=== PATIENT | male | born 1955 | race African-American/Black ===

== ENCOUNTER 2024-01-06 12:36 | Emergency (ER) | payer MEDICARE, OTHER, SELFPAY ==
--- NOTE | 2024-01-06 12:44 | ED_ITS ---
HPI - Eye Problem General Chief complaint: Eye Problems Stated complaint: eye pain and redness, high blood pressure Time Seen by Provider: 01/06/24 13:00 Source: patient, RN notes reviewed and old records reviewed Mode of arrival: ambulatory History of Present Illness ED Provider: Mahsa Zavala PA-C HPI Narrative: 68-year-old male with a past medical history of HTN, noncompliant on medication x months due to insurance issues, DVT/PE on Coumadin (INR 1.4 yesterday s/p missing a few doses of his medication) presenting to the ED complaining of left eye irritation, redness, and blurry vision since waking this morning. States was rubbing eye last night, felt like he had something in it. Denies headache at present, nausea/vomiting, chest pain, shortness of breath, weakness. Patient states he believes redness is from his blood pressure. Reports chronic ?implanted contacts. MD chief complaint: eye pain, eye redness and vision change Related Data Previous Rx's ?Medication ?Instructions ?Recorded amlodipine 5 mg tablet (Norvasc) 5 mg PO DAILY #30 tabs 01/06/24 erythromycin 5 mg/gram (0.5 %) eye 1 appl ophthalmic (eye) QID 7 days 01/06/24 ointment #3.5 grams Allergies Allergy/AdvReac Type Severity Reaction Status Date / Time No Known Allergies Allergy Verified 01/06/24 12:50 Review of Systems Review of Systems: Constitutional: No Fever, No Chills, No Fatigue, No Malaise ENT/Mouth: No Ear Pain, No Nasal Congestion, No sore throat, No Rhinorrhea, No Swallowing Difficulty Eyes: + Eye Pain, No Swelling, + Redness, + Foreign Body sensation, No Discharge, + Vision Changes Cardiovascular: No Chest Pain, No SOB, No Palpitations Respiratory: No Cough, No Sputum, No Dyspnea Gastrointestinal: No Nausea, No Vomiting, No Diarrhea, No Constipation, No Abdominal pain Musculoskeletal: No joint pain, No Myalgias, No Joint Swelling Skin: No Skin Lesions, No rash Neuro: No Weakness, No Numbness, No Paresthesias, No Loss of Consciousness, No Dizziness, No Headache Yes all other systems are reviewed and are negative Constitutional: Constitutional: Reports as per HPI Eyes: Eyes: Reports photophobia PMFSH Past Medical History Attestation statement: The following information was validated with the patient. Source: old records reviewed Social History Social History Advance Directives: No Physical Exam Vital Signs: Vital Signs: Last Vital Signs Temp 97.4 F 01/06/24 12:45 Pulse 57 01/06/24 14:19 Resp 18 01/06/24 12:45 BP 181/94 H 01/06/24 14:19 Pulse Ox 97 01/06/24 14:19 O2 Del Method Room Air 01/06/24 14:19 BMI result Body Mass Index 24.4 Const: General: cooperative, healthy appearing and no acute distress Orientation/consciousness: patient oriented x3 Limitations: no limitations HEENT: Head: Yes normal to inspection and Yes atraumatic Ears: hearing grossly normal bilaterally General nose exam: Normal external nose present Face and sinus: Yes normal facial exam Eyes: Other: +mild swelling to left upper eyelid. IOP WNL VA 20/50 bilaterally, and right, and left General: appearance normal, both eyes and all related structures Visual Watts: normal visual watts by confrontation Alignment and Position: alignm ent normal Periorbital: periorbital findings normal Conjunctivae: conjunctival abnormal left conjunctival injection diffuse; without discharge and without subconjunctival hemmorhages Corneas: fluorescein used (without uptake) Pupils: Equal, round and reactive pupils present EOM: EOMs intact bilaterally and no movement deficit Direct Ophthalmoscopy: normal light reflex and photophobia Neck: Neck: Yes normal visual inspection and Yes no meningeal signs Resp: Effort & Inspection: normal respiratory effort and no respiratory dis tress Cardio: Rate: regular rate : General: Yes no CVA tenderness Back/Spine/Pelvis: Back: no CVA tenderness Skin: Rashes: no rashes Wounds: no wounds Neuro: General: patient oriented x3, gait normal, tone normal, moves all extremities, no meningeal signs, no focal motor deficits and CN's II-XI intact bilaterally Cranial nerves: Yes CN's II-XII intact bilaterally and Yes Equal, round and reactive pupils present Gait exam (Neuro): Normal gait present Extrem: General: Yes normal to inspection Course Course Course Narrative: This is a Rapid Medical Examination (RME) performed by Ramin Song PA-C in triage. Full HPI, ROS, assessment and treatment plan per primary provider in the Main ED. 68 yo male with history of HTN no longer on medication due to insurance issues, history of DVT/PE on Coumadin (INR yesterday 1.4) who presents to the ER for evaluation of left eye pain/irritation, redness and headache that started last night. he felt like he had something in it and was rubbing it. he reports blurriness of the left eye. has a PCP but has been off of his BP meds. left eye is injected in triage. Plan: visual acuity, eye exam -1424--diastolic BP improved after PO Norvasc > 1mos Rx sent to pharmacy Results discussed with patient including worrisome signs and symptoms and strict return precautions, and when to return to the emergency department. They verbalized understanding and feel safe for discharge at this time. Medications Administered Discontinued Medications Generic Name Dose Route Start Last Admin Trade Name Freq PRN Reason Stop Dose Admin Amlodipine Besylate 5 mg 01/06/24 13:36 01/06/24 13:48 Amlodipine Besylate 5 Mg Tablet PO 01/06/24 13:37 5 mg ONCE ONE Administration Protocol Fluorescein Sodium 1 strip 01/06/24 12:46 01/06/24 13:49 Fluorescein Sodium Strip EYE-LEFT 01/06/24 12:47 1 strip ONCE ONE Administration Tetracaine HCl 1 drop 01/06/24 12:46 01/06/24 13:48 Tetracaine Hcl/Pf 0.5% Oph Clarissa 4 Ml Drops EYE-LEFT 01/06/24 12:47 1 drop ONCE ONE Administration Medical Decision Making Medical Decision Making MDM Narrative: 68-year-old male with a past medical history of HTN, noncompliant on medication x months due to insurance issues, DVT/PE on Coumadin (INR 1.4 yesterday s/p missing a few doses of his medication) presenting to the ED complaining of left eye irritation, redness, and blurry vision since waking this morning. On exam hypertensive, NAD, nontoxic appearing, physical exam as above, no focal neuro deficits, ambulating with steady gait. Left eye conjunctival injection appreciated. IOP is WNL. No appreciable foreign body/corneal abrasion/ulceration or fluorescein uptake. Concern for chronic hypertension due to medication noncompliance. Lower suspicion for hypertensive urgency/emergency without headache/chest pain. Concern for corneal abrasion/small on appreciable foreign body vs iritis/uveitis. No evidence of globe rupture, or glaucoma. Discussed importance of medication compliance, including Coumadin, states he has recheck on Monday. Recommended close PCP follow-up/blood pressure monitoring and INR monitoring. 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 Norvasc, blood pressure recheck, PCP and Ophthalmology follow-up Please refer to course for remaining clinical decision making, interpretation of labs/imaging results, and discussions with consultants and/or family members. Results discussed with patient including worrisome signs and symptoms and strict return precautions, and when to return to the emergency department. They verbalized understanding and feel safe for discharge at this time. Differential Diagnosis Differential Diagnoses: The differential diagnosis associated with the presentation includes As above External Record Review External record reviewed: Inpatient record, Office record, Outpatient record, Prior outpatient labs, Prior outpatient radiology, Primary care record and Outside ED record Tests considered The following testing was considered but not selected: As above Chronic Conditions Patient?s care impacted by: Hypertension and Other Discharge Plan Discharge Clinical Impression: Hypertension, Conjunctival injection Patient Disposition: Home, Self-Care Instructions: Iritis (ED), Hypertension (ED) Additional Instructions: It is very important for you to take your blood pressure medications as well as your Coumadin. Avoid missing doses Erythromycin as an antibiotic ointment for your eye FOLLOW-UP WITH YOUR DOCTOR AND OPHTHALMOLOGY Monitor your blood pressure at home, if remains high, or is too low please return to the ED immediately If you develop headache, vision change/loss, nausea/vomiting, weakness return to the ED immediately Prescriptions: New erythromycin 5 mg/gram (0.5 %) ointment 1 appl ophthalmic (eye) QID 7 Days Qty: 3.5 0RF amlodipine [Norvasc] 5 mg tablet 5 mg PO DAILY Qty: 30 0RF Referrals: Farrukh Najera [Physician] - 3 days Physician,Damian J [Primary Care Provider] - 2 days Print Language: Tamazight
[2024-01-06 12:45] VITALS: BP 170/106; PULSE 83; RESP 18; TEMP 36.3; O2SAT 96; BMI 24.4
[2024-01-06] MEDS: Tetracaine HCl/PF 0.5% Oph Sol 4 ML DROPS 1 DROP EYE-LEFT (13:48)
[2024-01-06] MEDS: amLODIPine Besylate 5 MG TABLET PO (13:48)
[2024-01-06] MEDS: Fluorescein Sodium STRIP 1 STRIP EYE-LEFT (13:49)
[2024-01-06 14:19] VITALS: BP 181/94; PULSE 57; O2SAT 97
[2024-01-06 14:54] VITALS: BP 181/94; PULSE 57; RESP 18; TEMP 36.3; O2SAT 97
== END 2024-01-06 14:49 | disposition home or self-care (01) ==
PROVIDERS: Emergency Provider Emergency Medicine Emergency Medical Services
DX: I10 Essential (primary) hypertension (principal); H11.432 Conjunctival hyperemia, left eye; Z91.141 Patient's other noncompliance with medication regimen due to financial hardship
CPT/HCPCS: 99283